=== PATIENT | male | born 1985 | race Caucasian/White ===

== ENCOUNTER 2021-10-25 08:11 | Emergency (ER) | payer BC ==
[~2021-10-25] VITALS: Ht 170.2 cm; Wt 81.8 kg
[~2021-10-25 08:11] MED LIST: AMOXICILLIN 50500 MG PO; FLEXERIL 1010 MG/TAB PO; NO HOME MEDICATIONS; NORCO 325 MG-51 TAB PO; PEN-VEE K500 MG PO; PERCOCET 325 MG1 TA2 PO; ULTRAM 50MG TAB50 MG PO
[2021-10-25 08:17] VITALS: BP 156/96; TEMP 97.8
[2021-10-25] MEDS ORDERED: CLEOCIN HC150 MG/CAP PO (08:30)
[2021-10-25] MEDS ORDERED: NORCO 325 MG-51 TAB PO (08:34)
[2021-10-25 09:06] VITALS: PULSE 72
== END 2021-10-25 09:00 | disposition home or self-care (01) ==
LOC: COL.ER 08:11
DX: R05.9 Cough, unspecified (principal)

== ENCOUNTER 2022-02-22 08:49 | Emergency (ER) | payer BC ==
[~2022-02-22] VITALS: Ht 170.2 cm; Wt 72.7 kg
[~2022-02-22 08:49] MED LIST changes: +CLEOCIN HC150 MG/CAP PO
[2022-02-22 08:56] VITALS: BP 121/85; TEMP 98.1
[2022-02-22 09:33] VITALS: PULSE 81
== END 2022-02-22 09:33 | disposition home or self-care (01) ==
LOC: COL.ER 08:49
DX: U07.1 COVID-19 (principal); F17.210 Nicotine dependence, cigarettes, uncomplicated; Z28.310 Unvaccinated for COVID-19